=== PATIENT | female | born 1995 | race Asian ===

== ENCOUNTER 2020-04-02 18:20 | Emergency (ER) | payer OTHER ==
[~2020-04-02] VITALS: Ht 157.5 cm; Wt 60.0 kg
[2020-04-02] MEDS ORDERED: KETOROLAC 30MG/ML VIAL IM STA (20:53)
[2020-04-02 21:20] LABS: BASOPHILS % 0.5 % (0.0-2.0); EOSINOPHILS % 2.2 % (0.0-5.0); HEMATOCRIT. 43.5 % (36.0-48.0); HEMOGLOBIN. 14.3 g/dL (12.0-16.0); LYMPHOCYTES % 16.8 % (20.0-50.0); MEAN CORPUSCULAR HEMOGLOBIN 27.8 pg (28.0-32.0); MEAN CORPUSCULAR VOLUME 84.4 fL (81.0-99.0); MEAN PLATELET VOLUME 9.1 fl (7.4-10.4); MONOCYTES % 5.3 % (2.0-8.0); NEUTROPHILS % 75.2 % (40.0-76.0); PLATELET 276 x1000/uL (130-400); RED BLOOD CELL COUNT 5.16 mill/uL (4.2-5.4); RED CELL DISTRIBUTION WIDTH 13.1 % (11.6-14.6)
[2020-04-02 21:22] LABS: CHLORIDE 104 mEq/L (98-107)
[2020-04-02] MEDS ORDERED: ACETAMINOPHEN 325MG TABLET PO ONE (23:00)
[2020-04-03 00:22] VITALS: BP 130/98
== END 2020-04-03 00:26 | disposition home or self-care (01) ==
LOC: ER 18:20
DX: R07.89 Other chest pain (principal); I49.9 Cardiac arrhythmia, unspecified; J45.909 Unspecified asthma, uncomplicated
CPT/HCPCS: 36415; 71045; 80053; 81025; 83880; 84484; 85025; 85379; 93005; 99285; J1885